=== PATIENT | female | born 1985 | race African-American/Black ===

== ENCOUNTER 2018-07-30 13:26 | Emergency (ER) | payer SELFPAY ==
--- OUTSIDE RECORDS SUMMARY | 2018-07-30 13:30 | XMS REPORT | Clinical Summary ---
:1985 Author Organization [facility] Address [address] [place] [address] Care Team Providers Name Role Phone Sharpless Primary Care Provider Unavailable Allergies Active Allergy Reactions Severity Noted Date Comments Penicillins Hives 07/07/2016 Medications Medication Sig Dispensed Refills Start Date End Date Status traMADol (ULTRAM) 50 Take 1 tablet (50 15 tablet 0 07/07/2016 Active mg tablet mg total) by mouth every 8 (eight) hours as needed for Pain for up to 15 doses. Max Daily Amount: 150 mg Active Problems Not on file Social History Tobacco Use Types Packs/Day Years Used Date Never Smoker Alcohol Use Drinks/Week oz/Week Comments No Sex Assigned at Date Recorded Not on file Job Start Date Occupation Industry Not on file Not on file Not on file Travel History Travel Start Travel End No recent travel history available. Last Filed Vital Signs Not on file Plan of Treatment Not on file Results Not on fileafter 07/29/2017
[2018-07-30 15:59] LABS: Urine Blood 1+ (NEG); Urine Glucose NEGATIVE (NEG); Urine Protein NEGATIVE (NEG)
[2018-07-30 16:11] LABS: Urine RBC <5 /HPF (NONE SEEN)
[2018-07-30 16:12] LABS: Urine Bacteria LOADED /HPF (<20); Urine Culture Reflex Order REFLEXED
--- NOTE | 2018-07-30 16:38 | RAD REPORT ---
EXAM DESCRIPTION: RAD - Ankle Right 3 View - 07/30/2018 3:56 pm CLINICAL HISTORY: Right ankle pain status post injury FINDINGS: No fracture or dislocation is seen. 12 millimeter calcification abuts the anterior aspect of the talus
--- NOTE | 2018-07-30 16:38 | RAD REPORT ---
EXAM DESCRIPTION: RAD - Lumbar Spine 3 Views - 07/30/2018 3:57 pm CLINICAL HISTORY: Back pain FINDINGS: The alignment of the lumbar spine is satisfactory. No fracture or dislocation is seen.
--- NOTE | 2018-07-30 17:30 | ER ---
Nurse's Notes [facility] Name: Ishmael Gomez Age: 33 yrs Sex: Female : 1985 Arrival Date: 07/30/2018 Time: 13:33 Bed 30 Private MD: None, None Diagnosis: Vomiting;Acute upper respiratory infection, unspecified;Sprain of ankle;Contusion of lower back and pelvis;Urinary tract infection, site not specified Presentation: 07/30 13:53 Presenting complaint: Patient states: Reports falling while assisting family member out aj of bathtub this AM. Hit low back on toilet and twisted Right foot. Patient presented to triage with limp to left foot. Ambulated with slow gait. Also report flu like symptoms for 2 days. Reports pain to low back and right foot. Care prior to arrival: None. Mechanism of Injury: Fall from standing position. Trauma event details: Injury occurred in the [facility], Injury occurred: at home. Injury occurred: July 30, 2018 Injury occurred at: 09:00. 13:53 Acuity: JOSEFINA 3 aj 13:53 Method Of Arrival: Ambulatory aj 13:57 Transition of care: patient was not received from another setting of care. Onset of aj symptoms was July 30, 2018. Risk Assessment: Do you want to hurt yourself or someone else? Patient reports no desire to harm self or others. Initial Sepsis Screen: Does the patient meet any 2 criteria? No. Patient's initial sepsis screen is negative. Does the patient have a suspected source of infection? No. Patient's initial sepsis screen is negative. 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 - Social history:: Smoking status: Patient uses tobacco products, smokes one-half pack cigarettes per day. - Ebola Screening: : Patient negative for fever greater than or equal to 101.5 degrees Fahrenheit, and additional compatible Ebola Virus Disease symptoms Patient denies exposure to infectious person Patient denies travel to an Ebola-affected area in the 21 days before illness onset No symptoms or risks identified at this time. Screenin:00 Abuse screen: Denies threats or abuse. Denies injuries from another. Nutritional mg2 screening: No deficits noted. Tuberculosis screening: No symptoms or risk factors identified. Fall Risk Fall in past 12 months (25 points). Gait- Weak (10 pts.). Primary Survey: 13:53 NO uncontrolled hemorrhage observed. Breathing/Chest: Respiratory pattern: regular, aj Respiratory effort: spontaneous, unlabored. Circulation: Skin color: pink, Skin temperature: warm, dry. Disability Alert. 15:15 Exposure/Environment: There is no evidence of uncontrolled external bleeding. mg2 Reassessment Breathing/Chest Respiratory pattern Regular Respiratory effort Spontaneous Unlabored. Assessment: 13:53 General: Appears in no apparent distress. comfortable, obese, Behavior is calm, aj cooperative, appropriate for age. Pain: Complains of pain in low back area, mid back area and right foot. Neuro: Level of Consciousness is awake, alert, obeys commands, Oriented to person, place, time, situation, Appropriate for age. EENT: Reports nasal congestion nasal discharge. Respiratory: Airway is patent Respiratory effort is even, unlabored, Respiratory pattern is regular, symmetrical. Respiratory: Reports cough that is. GI: Reports nausea, vomiting. Derm: Skin is intact, is healthy with good turgor, Skin is pink, warm \T\ dry. normal. Musculoskeletal: Reports pain in low back area, mid back area and right foot. 15:00 Reassessment: Patient appears in no apparent distress at this time. Patient and/or mg2 family updated on plan of care and expected duration. Pain level reassessed. Patient is alert, oriented x 3, equal unlabored respirations, skin warm/dry/pink. 16:41 Reassessment: Patient appears in no apparent distress at this time. Patient and/or mg2 family updated on plan of care and expected duration. Pain level reassessed. Patient is alert, oriented x 3, equal unlabored respirations, skin warm/dry/pink. Vital Signs: 13:53 BP 145 / 91; Pulse 88; Resp 20; Temp 98.0; Pulse Ox 100% on R/A; Weight 163.29 kg; aj Height 5 ft. 6 in. (167.64 cm); 15:00 BP 130 / 90; Pulse 80; Resp 18; Pulse Ox 100% on R/A; Pain 0/10; mg2 16:21 BP 131 / 100; Pulse 89; Resp 18; Pulse Ox 100% on R/A; Pain 3/10; mg2 17:30 BP 123 / 78; Pulse 80; Resp 18; Pulse Ox 100% on R/A; mg2 13:53 Body Mass Index 58.10 (163.29 kg, 167.64 cm) aj [place] Coma Score: 13:53 Eye Response: spontaneous(4). Verbal Response: oriented(5). Motor Response: obeys aj commands(6). Total: 15. Trauma Score (Adult): 13:53 Eye Response: spontaneous(1); Verbal Response: oriented(1); Motor Response: obeys aj commands(2); Systolic BP: > 89 mm Hg(4); Respiratory Rate: 10 to 29 per min(4); Josiah Score: 15; Trauma Score: 12 ED Course: 13:33 Patient arrived in ED. sb2 13:34 None, None is Private Physician. sb2 13:55 Triage completed. aj 13:58 Arm band placed on left wrist. Patient placed in waiting room, Patient notified of wait aj time. Antipyretics given from triage as ordered by an ER provider. Antipyretics given from triage as ordered by an ER provider. X-ray ordered. 14:59 Gilbert Coronado PA is PHCP. jr8 14:59 Corey Dukes MD is Attending Physician. jr8 15:00 Nick Barrett, JEREMIAS is Primary Nurse. mg2 15:15 Patient has correct armband on for positive identification. mg2 15:15 No provider procedures requiring assistance completed. Patient did not have IV access mg2 during this emergency room visit. 15:15 Patient maintains SpO2 saturation greater than 95% on room air. Thermoregulation: warm mg2 blanket given to patient. 15:55 XRAY Ankle RIGHT 3 view In Process Unspecified. EDMS 15:57 XRAY Lumbar Spine (3 Views) In Process Unspecified. EDMS Administered Medications: No medications were administered Intake: 17:50 PO: 0ml; Total: 0ml. mg2 Outcome: 17:30 Discharge ordered by MD. pavon 17:50 Patient's length of stay in the Emergency Department was greater than 2 hours. awaiting mg2 results. Patient's length of stay extended due to 17:51 Discharged to home via wheelchair. mg2 17:51 Condition: stable 17:51 Discharge instructions given to patient, Instructed on discharge instructions, follow up and referral plans. medication usage, Demonstrated understanding of instructions, follow-up care, medications, Prescriptions given X 3. 17:51 Patient left the ED. mg2 Addendum: 08/02/2018 08:01 Addendum: Culture Results: Positive urine culture. No further action required. Bacteria i w sensitive to prescribed antibiotic. Signatures: Dispatcher [employer] EDAriadne Nguyen, RN RN Pratibha Diego RN RN Gilbert Love PA PA jr8 Saba Ceja2 Nick Barrett RN RN mg2
--- NOTE | 2018-07-30 17:30 | EDPHYS ---
Physician Documentation [facility] Name: Ishmael Gomez Age: 33 yrs Sex: Female : 1985 Arrival Date: 07/30/2018 Time: 13:33 Bed 30 Private MD: None, None ED Physician Corey Dukes HPI: 07/30 15:06 This 33 yrs old Black Female presents to ER via Ambulatory with complaints of Fall jr8 Injury - BACK,FOOT, Vomiting. 15:06 Details of fall: The patient fell from seated position. Onset: The symptoms/episode jr8 began/occurred acutely, today. Associated injuries: The patient sustained injury to the low back, right ankle. Severity of symptoms: At their worst the symptoms were mild, in the emergency department the symptoms are unchanged. The patient has not experienced similar symptoms in the past. The patient has not recently seen a physician. Patient stated while getting off of the toilet slipped and twisted right ankle. Caused her to hit low back directly on toilet bowl. Pain to ankle and low back. Had been vomiting for the past week along with flu like symptoms. Stated that co-workers had been having similar symptoms this past week as well. 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 - Social history:: Smoking status: Patient uses tobacco products, smokes one-half pack cigarettes per day. - Ebola Screening: : Patient negative for fever greater than or equal to 101.5 degrees Fahrenheit, and additional compatible Ebola Virus Disease symptoms Patient denies exposure to infectious person Patient denies travel to an Ebola-affected area in the 21 days before illness onset No symptoms or risks identified at this time. ROS: 15:06 Eyes: Negative for injury, pain, redness, and discharge, Neck: Negative for injury, jr8 pain, and swelling, Cardiovascular: Negative for chest pain, palpitations, and edema, Skin: Negative for injury, rash, and discoloration, Neuro: Negative for headache, weakness, numbness, tingling, and seizure. 15:06 Constitutional: Positive for body aches, chills. 15:06 ENT: Positive for rhinorrhea, sinus congestion, sore throat. 15:06 Respiratory: Positive for cough, Negative for dyspnea on exertion, shortness of breath, sputum production, wheezing. 15:06 Abdomen/GI: Positive for nausea and vomiting, Negative for abdominal pain, diarrhea, constipation, abdominal cramps, abdominal distension, hematemesis, black/tarry stool, rectal bleeding. 15:06 Back: Positive for pain at rest, pain with movement, of the lumbar area. 15:06 MS/extremity: Positive for pain, tenderness, of the right ankle. Exam: 15:06 Head/Face: Normocephalic, atraumatic. Eyes: Pupils equal round and reactive to light, jr8 extra-ocular motions intact. Lids and lashes normal. Conjunctiva and sclera are non-icteric and not injected. Cornea within normal limits. Periorbital areas with no swelling, redness, or edema. ENT: Nares patent. No nasal discharge, no septal abnormalities noted. Tympanic membranes are normal and external auditory canals are clear. Oropharynx with no redness, swelling, or masses, exudates, or evidence of obstruction, uvula midline. Mucous membranes moist. Neck: Trachea midline, no thyromegaly or masses palpated, and no cervical lymphadenopathy. Supple, full range of motion without nuchal rigidity, or vertebral point tenderness. No Meningismus. Chest/axilla: Normal chest wall appearance and motion. Nontender with no deformity. No lesions are appreciated. Cardiovascular: Regular rate and rhythm with a normal S1 and S2. No gallops, murmurs, or rubs. Normal PMI, no JVD. No pulse deficits. Respiratory: Lungs have equal breath sounds bilaterally, clear to auscultation and percussion. No rales, rhonchi or wheezes noted. No increased work of breathing, no retractions or nasal flaring. Abdomen/GI: Soft, non-tender, with normal bowel sounds. No distension or tympany. No guarding or rebound. No evidence of tenderness throughout. Skin: Warm, dry with normal turgor. Normal color with no rashes, no lesions, and no evidence of cellulitis. Neuro: Awake and alert, GCS 15, oriented to person, place, time, and situation. Cranial nerves II-XII grossly intact. Motor strength 5/5 in all extremities. Sensory grossly intact. Cerebellar exam normal. Normal gait. 15:06 Back: pain, that is mild, of the lumbar area, ROM is painful, normal spinal alignment noted, CVA tenderness, is absent, muscle spasm, is not present. 15:06 Musculoskeletal/extremity: Extremities: grossly normal except: noted in the right ankle: pain, tenderness, to lateral malleolus , ROM: intact in all extremities, full active range of motion, full passive range of motion, limited active range of motion due to pain, limited passive range of motion due to pain, Circulation is intact in all extremities. Sensation intact. Vital Signs: 13:53 BP 145 / 91; Pulse 88; Resp 20; Temp 98.0; Pulse Ox 100% on R/A; Weight 163.29 kg; aj Height 5 ft. 6 in. (167.64 cm); 15:00 BP 130 / 90; Pulse 80; Resp 18; Pulse Ox 100% on R/A; Pain 0/10; mg2 16:21 BP 131 / 100; Pulse 89; Resp 18; Pulse Ox 100% on R/A; Pain 3/10; mg2 17:30 BP 123 / 78; Pulse 80; Resp 18; Pulse Ox 100% on R/A; mg2 13:53 Body Mass Index 58.10 (163.29 kg, 167.64 cm) aj Josiah Coma Score: 13:53 Eye Response: spontaneous(4). Verbal Response: oriented(5). Motor Response: obeys aj commands(6). Total: 15. Trauma Score (Adult): 13:53 Eye Response: spontaneous(1); Verbal Response: oriented(1); Motor Response: obeys aj commands(2); Systolic BP: > 89 mm Hg(4); Respiratory Rate: 10 to 29 per min(4); Josiah Score: 15; Trauma Score: 12 MDM: 14:59 Patient medically screened. [facility] 17:28 Data reviewed: vital signs, nurses notes, lab test result(s), radiologic studies, plain jr8 films. Data interpreted: Pulse oximetry: on room air is 100 %. Interpretation: normal. Counseling: I had a detailed discussion with the patient and/or guardian regarding: the historical points, exam findings, and any diagnostic results supporting the discharge/admit diagnosis, lab results, radiology results, the need for outpatient follow up, a family practitioner, to return to the emergency department if symptoms worsen or persist or if there are any questions or concerns that arise at home. 07/30 15:24 Order name: Urine Microscopic Only; Complete Time: 16:21 mg2 07/30 15:49 Order name: Urine Dipstick--Ancillary (enter results); Complete Time: 16:21 eb 07/30 15:05 Order name: XRAY Ankle RIGHT 3 view; Complete Time: 17:28 8 07/30 15:05 Order name: XRAY Lumbar Spine (3 Views); Complete Time: 17:28 jr8 07/30 15:49 Order name: Urine --Ancillary (enter results); Complete Time: 16:21 eb 07/30 16:14 Order name: Urine Culture [facility] 07/30 15:05 Order name: Urine Test (obtain specimen); Complete Time: 15:22 jr8 07/30 15:05 Order name: Urine Dipstick-Ancillary (obtain specimen); Complete Time: 15:22 jr8 Administered Medications: No medications were administered Disposition: 07/30/18 17:30 Discharged to Home. Impression: Vomiting, Acute upper respiratory infection, unspecified, Sprain of ankle, Contusion of lower back and pelvis, Urinary tract infection, site not specified. - Condition is Stable. - Discharge Instructions: Ankle Sprain, Nausea and Vomiting, Adult, Upper Respiratory Infection, Adult. - Prescriptions for Zofran 4 mg Oral Tablet - take 1 tablet by ORAL route every 8 hours As needed; 20 tablet. Macrobid 100 mg Oral Capsule - take 1 capsule by ORAL route every 12 hours for 7 days; 14 capsule. Ibuprofen 800 mg Oral Tablet - take 1 tablet by ORAL route every 12 hours As needed take with food; 20 tablet. - Medication Reconciliation Form, Thank You Letter, Antibiotic Education, Prescription Opioid Use form. - Follow up: Private Physician; When: 5 - 6 days; Reason: Recheck today's complaints, Continuance of care, Re-evaluation by your physician. - Problem is new. - Symptoms have improved. Addendum: 08/03/2018 11:03 Co-signature as Attending Physician, Corey Dukes MD I agree with the assessment and c castro plan of care. Signatures: Dispatcher [employer] EDMS Castillo, Ariadne, RN Corey Lamar MD MD cha Roszak, Josh, PA PA jr8 Nick Barrett RN RN mg2 Corrections: (The following items were deleted from the chart) 07/30 17:51 17:30 07/30/2018 17:30 Discharged to Home. Impression: Vomiting; Acute upper mg2 respiratory infection, unspecified; Sprain of ankle; Contusion of lower back and pelvis; Urinary tract infection, site not specified. Condition is Stable. Forms are Medication Reconciliation Form, Thank You Letter, Antibiotic Education, Prescription Opioid Use. Follow up: Private Physician; When: 5 - 6 days; Reason: Recheck today's complaints, Continuance of care, Re-evaluation by your physician. Problem is new. Symptoms have improved. jr8
== END 2018-07-30 17:51 | disposition home or self-care (01) ==
LOC: ER 13:26
DX: S30.0XXA Contusion of lower back and pelvis, initial encounter (principal); S93.401A Sprain of unspecified ligament of right ankle, initial encounter; W18.12XA Fall from or off toilet with subsequent striking against object, initial encounter; J06.9 Acute upper respiratory infection, unspecified; N39.0 Urinary tract infection, site not specified; R11.10 Vomiting, unspecified; F17.210 Nicotine dependence, cigarettes, uncomplicated
CPT/HCPCS: 72100; 81003; 81015; 81025; 87077; 87086; 87088; 87186; 99284

== ENCOUNTER 2018-10-04 13:40 | Emergency (ER) | payer OTHER ==
--- OUTSIDE RECORDS SUMMARY | 2018-10-04 13:42 | XMS REPORT | Clinical Summary ---
:[address] [facility] Address [address] [place] [address] Care Team Providers Name Role Phone Sharpless [...] Not on file Results Not on fileafter 10/03/2017
--- NOTE | 2018-10-04 15:28 | RAD REPORT ---
EXAM DESCRIPTION: CT - Stone Protocol - 10/04/2018 3:15 pm CLINICAL HISTORY: Flank pain. FLANK PAIN COMPARISON: No comparisons TECHNIQUE: Axial images were obtained without oral or IV contrast. Lack of contrast limits solid org an and vascular assessment. The [id number] spans the entirety of the system partially obscuring uppermost abdomen and lung bases. Coronal reformatted images were obtained and reviewed. All CT scans are performed using dose optimization technique as appropriate and may include automated exposure control or mA/KV adjustment according to patient size. FINDINGS: The lower lung purcell are clear. Cholecystectomy clips. Imaged portions of the liver and spleen show no suspicious findings on non-contrast imaging. The panc reas and adrenal glands are normal. No pathologic lymphadenopathy in the abdomen or pelvis. No urinary tract stones or obstructive uropathy. No bowel obstruction, free air, free fluid or abscess. Normal appendix noted. No significant bony abnormality. IUD is present. IMPRESSION: No urinary tract stones or obstructive uropathy.
--- NOTE | 2018-10-04 16:31 | ER ---
Nurse's Notes [facility] Name: Ishmael Gomez Age: 33 yrs Sex: Female : 1985 Arrival Date: 10/04/2018 Time: 13:41 Bed 17 Private MD: None, None Diagnosis: Flank Pain Presentation: 10/04 14:06 Presenting complaint: Patient states: left flank pain that began 4 days ago. Pt denies aa5 any urinary symptoms. Pt denies N/V. Transition of care: patient was not received from another setting of care. Onset of symptoms was October 2018. Risk Assessment: Do you want to hurt yourself or someone else? Patient reports no desire to harm self or others. Initial Sepsis Screen: Does the patient meet any 2 criteria? No. Patient's initial sepsis screen is negative. Does the patient have a suspected source of infection? No. Patient's initial sepsis screen is negative. Care prior to arrival: None. 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 - Social history:: Smoking status: Patient/guardian denies using tobacco. - Ebola Screening: : No symptoms or risks identified at this time. Screenin:03 Abuse screen: Denies threats or abuse. Denies injuries from another. Nutritional ph screening: No deficits noted. Tuberculosis screening: No symptoms or risk factors identified. Fall Risk None identified. Assessment: 14:59 General: Appears in no apparent distress. uncomfortable, obese, well groomed, Behavior ph is calm, cooperative, appropriate for age, Denies fever, chills. Pain: Complains of pain in left iliac crest Pain does not radiate. Pain began approx 4 days ago Is continuous. Neuro: Level of Consciousness is awake, alert, obeys commands, Oriented to person, place, time, situation. Cardiovascular: Capillary refill < 3 seconds in bilateral fingers Patient's skin is warm and dry. Respiratory: Airway is patent Respiratory effort is even, unlabored, Respiratory pattern is regular, symmetrical. GI: Abdomen is non-distended, obese, Patient currently denies abdominal pain, diarrhea, nausea, vomiting. : Reports pain in left flank(s), Denies burning with urination, inability to void, urinary frequency. Derm: Skin is intact, is healthy with good turgor, Skin is pink, warm \T\ dry. Musculoskeletal: Circulation, motion, and sensation intact. Range of motion: intact in all extremities. Vital Signs: 14:07 BP 141 / 101; Pulse 91; Resp 16 S; Temp 98.6; Pulse Ox 97% on R/A; Weight 162.39 kg aa5 (R); Height 5 ft. 6 in. (167.64 cm) (R); Pain 8/10; 14:07 Body Mass Index 57.78 (162.39 kg, 167.64 cm) aa5 ED Course: 13:41 Patient arrived in ED. ag5 13:41 None, None is Private Physician. ag5 14:06 Triage completed. aa5 14:06 Arm band placed on. aa5 14:10 Aria Rodrigez FNP-C is PHCP. kb 14:10 Yancy Omer MD is Attending Physician. kb 14:58 Brittany Peña, RN is Primary Nurse. ph 15:02 Patient has correct armband on for positive identification. Bed in low position. Call ph light in reach. Side rails up X 1. Pulse ox on. NIBP on. Door closed. Noise minimized. Warm blanket given. 15:03 No provider procedures requiring assistance completed. ph 15:10 CT completed. Patient tolerated procedure well. Patient moved to CT via wheelchair. wv Patient moved back from CT. 15:[address] In Process Unspecified. EDMS Administered Medications: No medications were administered Outcome: 16:30 Discharge ordered by . kb 17:00 Patient left the ED. Signatures: Dispatcher [employer] EDMS Aria Rodrigez FNP-C FNP-Ckb Calderon, Audri, RN RN 5 Juani Teixeira RN RN Brittany Peña RN RN Wilson Li [facility]
--- NOTE | 2018-10-04 16:31 | EDPHYS ---
Physician Documentation [facility] Name: Ishmael Gomez Age: 33 yrs Sex: Female : 1985 Arrival Date: 10/04/2018 Time: 13:41 Bed 17 Private MD: None, None ED Physician Yancy Omer HPI: 10/04 15:22 This 33 yrs old Black Female presents to ER via Ambulatory with complaints of PAIN ON kb LEFT SIDE. 15:26 The patient complains of pain in the left flank. The pain does not radiate. Onset: The kb symptoms/episode began/occurred 4 day(s) ago. Modifying factors: The symptoms are alleviated by nothing. the symptoms are aggravated by nothing. Associated signs and symptoms: The patient has no apparent associated signs or symptoms. Severity of pain: At its worst the pain was mild moderate in the emergency department the pain is unchanged. The patient has not experienced similar symptoms in the past. The patient has not recently seen a physician. 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 - Social history:: Smoking status: Patient/guardian denies using tobacco. - Ebola Screening: : No symptoms or risks identified at this time. ROS: 15:17 Constitutional: Negative for fever, chills, and weight loss, Neck: Negative for injury, kb pain, and swelling, Cardiovascular: Negative for chest pain, palpitations, and edema, Respiratory: Negative for shortness of breath, cough, wheezing, and pleuritic chest pain, Abdomen/GI: Negative for abdominal pain, nausea, vomiting, diarrhea, and constipation, : Negative for injury, bleeding, discharge, and swelling, MS/Extremity: Negative for injury and deformity, Skin: Negative for injury, rash, and discoloration, Neuro: Negative for headache, weakness, numbness, tingling, and seizure. 15:17 Back: Positive for flank pain, on the left. Exam: 15:18 Constitutional: This is a well developed, well nourished patient who is awake, alert, kb and in no acute distress. Head/Face: Normocephalic, atraumatic. Chest/axilla: Normal chest wall appearance and motion. Nontender with no deformity. No lesions are appreciated. Cardiovascular: Regular rate and rhythm with a normal S1 and S2. No gallops, murmurs, or rubs. Normal PMI, no JVD. No pulse deficits. Respiratory: Lungs have equal breath sounds bilaterally, clear to auscultation and percussion. No rales, rhonchi or wheezes noted. No increased work of breathing, no retractions or nasal flaring. Abdomen/GI: Soft, non-tender, with normal bowel sounds. No distension or tympany. No guarding or rebound. No evidence of tenderness throughout. Back: No spinal tenderness. No costovertebral tenderness. Full range of motion. Skin: Warm, dry with normal turgor. Normal color with no rashes, no lesions, and no evidence of cellulitis. MS/ Extremity: Pulses equal, no cyanosis. Neurovascular intact. Full, normal range of motion. Neuro: Awake and alert, GCS 15, oriented to person, place, time, and situation. Cranial nerves II-XII grossly intact. Motor strength 5/5 in all extremities. Sensory grossly intact. Cerebellar exam normal. Normal gait. Vital Signs: 14:07 BP 141 / 101; Pulse 91; Resp 16 S; Temp 98.6; Pulse Ox 97% on R/A; Weight 162.39 kg aa5 (R); Height 5 ft. 6 in. (167.64 cm) (R); Pain 8/10; 14:07 Body Mass Index 57.78 (162.39 kg, 167.64 cm) aa5 MDM: 14:35 Patient medically screened. kb 15:11 Data reviewed: vital signs, nurses notes. Data interpreted: Pulse oximetry: on room air kb is 97 %. Interpretation: normal. 15:29 Counseling: I had a detailed discussion with the patient and/or guardian regarding: the kb historical points, exam findings, and any diagnostic results supporting the discharge/admit diagnosis, radiology results, the need for outpatient follow up, a family practitioner, to return to the emergency department if symptoms worsen or persist or if there are any questions or concerns that arise at home. 10/04 15:05 Order name: Urine Dipstick--Ancillary (enter results); Complete Time: 17:03 ss 10/04 15:05 Order name: Urine --Ancillary (enter results); Complete Time: 17:03 ss 10/04 14:10 Order name: Urine Dipstick-Ancillary (obtain specimen); Complete Time: 14:58 kb 10/04 14:57 Order name: Stone Protocol CT; Complete Time: 15:29 kb Administered Medications: No medications were administered Disposition: 17:13 Co-signature as Attending Physician, Yancy Omer MD. ma2 Disposition: 10/04/18 16:30 Discharged to Home. Impression: Flank Pain. - Condition is Stable. - Discharge Instructions: Muscle Pain, Adult, Flank Pain, [id number]. - Prescriptions for Cyclobenzaprine 10 mg Oral Tablet - take 1 tablet by ORAL route every 8 hours As needed; 21 tablet. Diclofenac Sodium 75 mg Oral Tablet, Delayed Release (E.C.) - take 1 tablet by ORAL route 2 times per day As needed; 30 tablet. - Medication Reconciliation Form, Thank You Letter, Antibiotic Education, Prescription Opioid Use form. - Follow up: Emergency Department; When: As needed; Reason: Worsening of condition. Follow up: Private Physician; When: 2 - 3 days; Reason: Recheck today's complaints, Continuance of care, Re-evaluation by your physician. Signatures: Dispatcher [employer] Aria Lanier, ELAINE-C PAINT DIPPER-Melisa Obrien RN RN aa5 Juani Teixeira RN RN ss Alzahri, Mohammad, MD MD ma2 Corrections: (The following items were deleted from the chart) 17:00 16:30 10/04/2018 16:30 Discharged to Home. Impression: Flank Pain. Condition is Stable. ss Forms are Medication Reconciliation Form, Thank You Letter, Antibiotic Education, Prescription Opioid Use. Follow up: Emergency Department; When: As needed; Reason: Worsening of condition. Follow up: Private Physician; When: 2 - 3 days; Reason: Recheck today's complaints, Continuance of care, Re-evaluation by your physician. kb
[2018-10-04 16:50] LABS: Urine Blood 1+ (NEG); Urine Glucose NEGATIVE (NEG); Urine Protein NEGATIVE (NEG); Urine Specific Gravity 1.025 (1.005-1.030)
== END 2018-10-04 17:00 | disposition home or self-care (01) ==
LOC: ER 13:40
DX: R10.9 Unspecified abdominal pain (principal); I10 Essential (primary) hypertension; Z88.1 Allergy status to other antibiotic agents; Z88.0 Allergy status to penicillin
CPT/HCPCS: 74176; 76377; 81003; 81025; 99284

== ENCOUNTER 2020-05-12 13:17 | Emergency (ER) | payer OTHER, SELFPAY ==
--- OUTSIDE RECORDS SUMMARY | 2020-05-12 13:19 | XMS REPORT | Clinical Summary ---
:1985 Author Organization [facility] Address [address] [place] [address] Care Team Providers Name Role Phone Sharpless [...] Assigned at Date Recorded Not on file Last Filed Vital Signs Not on file Plan of Treatment Not on file Results Not on fileafter 05/12/2019
--- NOTE | 2020-05-12 13:56 | ER ---
Nurse's Notes [facility] Name: Ishmael Gomez Age: 35 yrs Sex: Female : 1985 Arrival Date: 05/12/2020 Time: 13:24 Bed 29 Private MD: Diagnosis: Pain in right knee Presentation: 05/12 13:38 Chief complaint: Patient states: R knee pain for a couple months. No known trauma. ll1 Coronavirus screen: Client denies travel out of the [place] in the last 14 days. runny nose, Client presents with at least one sign or symptom that may indicate coronavirus-19. Standard/surgical mask placed on the client. Ebola Screen: Patient denies travel to an Ebola-affected area in the 21 days before illness onset. Initial Sepsis Screen: Does the patient meet any 2 criteria? No. Patient's initial sepsis screen is negative. Does the patient have a suspected source of infection? Yes: Bone or joint infection. Risk Assessment: Do you want to hurt yourself or someone else? Patient reports no desire to harm self or others. Onset of symptoms was March 03, 2020. 13:38 Method Of Arrival: Ambulatory ll1 13:38 Acuity: JOSEFINA 4 ll1 Historical: - Allergies: 13:39 Clindamycin; ll1 13:39 PENICILLINS; ll1 - PMHx: 13:39 Hypertension; ll1 - PSHx: 13:39 Cholecystectomy; Hernia repair; ll1 - Immunization history:: Flu vaccine is not up to date. - Social history:: Smoking status: Patient denies any tobacco usage or history of. Screenin:55 Abuse screen: Denies threats or abuse. Denies injuries from another. Nutritional sv screening: No deficits noted. Tuberculosis screening: No symptoms or risk factors identified. Fall Risk None identified. Assessment: 13:55 General: Appears in no apparent distress. comfortable, obese, well developed, Behavior sv is calm, cooperative, appropriate for age. Pain: Complains of pain in right knee Pain currently is 9 out of 10 on a pain scale. Is intermittent, episodic, Aggravated by increased activity, weight bearing. Neuro: Level of Consciousness is awake, alert, obeys commands, Oriented to person, place, time, situation, Moves all extremities. Full function Gait is steady. Respiratory: Airway is patent Respiratory effort is even, unlabored, Respiratory pattern is regular, symmetrical. Derm: Skin is pink, warm \T\ dry. Vital Signs: 13:38 BP 148 / 78; Pulse 77; Resp 18; Temp 98.2; Pulse Ox 100% ; Weight 162.39 kg; Height 5 ll1 ft. 6 in. (167.64 cm); Pain 9/10; 13:38 Body Mass Index 57.78 (162.39 kg, 167.64 cm) ll1 ED Course: 13:24 Patient arrived in ED. mr 13:36 [facility] snw 13:36 Corey Dukes MD is Attending Physician. snw 13:39 Triage completed. ll1 13:39 Arm band placed on Patient placed in an exam room, on a stretcher. ll1 13:50 Dyan Jama, RN is Primary Nurse. eb 13:55 Patient has correct armband on for positive identification. Bed in low position. Call sv light in reach. 14:12 No provider procedures requiring assistance completed. Patient did not have IV access sv during this emergency room visit. Administered Medications: 13:55 Drug: TORadol 30 mg Route: IM; Site: right deltoid; sv 14:17 Follow up: Response: No adverse reaction sv Outcome: 13:56 Discharge ordered by . snw 14:17 Discharged to home ambulatory. sv 14:17 Condition: stable 14:17 Discharge instructions given to patient, Instructed on discharge instructions, follow up and referral plans. medication usage, Demonstrated understanding of instructions, follow-up care, medications, Prescriptions given X 1. 14:17 Patient left the ED. sv Signatures: Dyan Jama, RN RN Wendy Samuels FNP-C FNP-[facility] Cally RankinCristal Lynsay RN RN ll1
--- NOTE | 2020-05-12 13:56 | EDPHYS ---
Physician Documentation [facility] Name: Ishmael Gomez Age: 35 yrs Sex: Female : 1985 Arrival Date: 05/12/2020 Time: 13:24 Bed 29 Private MD: NIKHIL Physician Corey Dukes HPI: 05/12 14:02 This 35 yrs old Black Female presents to ER via Ambulatory with complaints of Knee Pain.snw 14:02 The patient presents with pain, that is acute. The complaints affect the lateral aspect snw of right knee, medial aspect of right knee and right knee. Context: The problem was sustained at an unknown site, resulted from an unknown cause, the patient can partially bear weight, the patient is able to ambulate, with mild difficulty, Problem is a result from a previous injury: No. Onset: The symptoms/episode began/occurred gradually, 3 month(s) ago, and became persistent. Associated signs and symptoms: Pertinent positives: limping. Treatment prior to arrival includes: no previous treatment. Severity of symptoms: At their worst the symptoms were moderate. It is unknown whether or not the patient has had similar symptoms in the past. It is unknown whether or not the patient has recently seen a physician. encouraged weight loss, pt states she has lost 12# in 2 weeks. Historical: - Allergies: 13:39 Clindamycin; ll1 13:39 PENICILLINS; ll1 - PMHx: 13:39 Hypertension; ll1 - PSHx: 13:39 Cholecystectomy; Hernia repair; ll1 - Immunization history:: Flu vaccine is not up to date. - Social history:: Smoking status: Patient denies any tobacco usage or history of. ROS: 14:01 Constitutional: Negative for fever, chills, and weight loss, Eyes: Negative for injury, snw pain, redness, and discharge, ENT: Negative for injury, pain, and discharge, Neck: Negative for injury, pain, and swelling, Cardiovascular: Negative for chest pain, palpitations, and edema, Respiratory: Negative for shortness of breath, cough, wheezing, and pleuritic chest pain, Abdomen/GI: Negative for abdominal pain, nausea, vomiting, diarrhea, and constipation, Back: Negative for injury and pain, : Negative for injury, bleeding, discharge, and swelling, Skin: Negative for injury, rash, and discoloration, Neuro: Negative for headache, weakness, numbness, tingling, and seizure, Psych: Negative for depression, anxiety, suicide ideation, homicidal ideation, and hallucinations. 14:01 MS/extremity: Positive for decreased range of motion, pain, of the lateral aspect of right knee, medial aspect of right knee and right knee, Negative for injury or acute deformity. Exam: 13:52 Constitutional: This is a well developed, obese patient who is awake, alert, and in no snw acute distress. Head/Face: Normocephalic, atraumatic. Eyes: Pupils equal round and reactive to light, extra-ocular motions intact. Lids and lashes normal. Conjunctiva and sclera are non-icteric and not injected. Cornea within normal limits. Periorbital areas with no swelling, redness, or edema. ENT: Nares patent. No nasal discharge, no septal abnormalities noted. Tympanic membranes are normal and external auditory canals are clear. Oropharynx with no redness, swelling, or masses, exudates, or evidence of obstruction, uvula midline. Mucous membranes moist. Neck: Trachea midline, no thyromegaly or masses palpated, and no cervical lymphadenopathy. Supple, full range of motion without nuchal rigidity, or vertebral point tenderness. No Meningismus. Chest/axilla: Normal chest wall appearance and motion. Nontender with no deformity. No lesions are appreciated. Cardiovascular: Regular rate and rhythm with a normal S1 and S2. No gallops, murmurs, or rubs. Normal PMI, no JVD. No pulse deficits. Respiratory: Lungs have equal breath sounds bilaterally, clear to auscultation and percussion. No rales, rhonchi or wheezes noted. No increased work of breathing, no retractions or nasal flaring. Abdomen/GI: Soft, non-tender, with normal bowel sounds. No distension or tympany. No guarding or rebound. No evidence of tenderness throughout. Back: No spinal tenderness. No costovertebral tenderness. Full range of motion. Skin: Warm, dry with normal turgor. Normal color with no rashes, no lesions, and no evidence of cellulitis. Neuro: Awake and alert, GCS 15, oriented to person, place, time, and situation. Cranial nerves II-XII grossly intact. Motor strength 5/5 in all extremities. Sensory grossly intact. Cerebellar exam normal. Normal gait. Psych: Awake, alert, with orientation to person, place and time. Behavior, mood, and affect are within normal limits. 13:52 Musculoskeletal/extremity: Extremities: grossly normal except: noted in the right knee: decreased ROM, swelling, tenderness, Circulation is intact in all extremities. Sensation intact. Vital Signs: 13:38 BP 148 / 78; Pulse 77; Resp 18; Temp 98.2; Pulse Ox 100% ; Weight 162.39 kg; Height 5 ll1 ft. 6 in. (167.64 cm); Pain 9/10; 13:38 Body Mass Index 57.78 (162.39 kg, 167.64 cm) ll1 MDM: 13:36 Patient medically screened. snw 14:02 Data reviewed: vital signs, nurses notes. Data interpreted: Pulse oximetry: on room air snw is 100 %. Interpretation: normal. Counseling: I had a detailed discussion with the patient and/or guardian regarding: the historical points, exam findings, and any diagnostic results supporting the discharge/admit diagnosis, the need for outpatient follow up, to return to the emergency department if symptoms worsen or persist or if there are any questions or concerns that arise at home. Special discussion: Based on the history and exam findings, there is no indication for further emergent testing or inpatient evaluation. I discussed with the patient/guardian the need to see the orthopedic surgeon for further evaluation of the symptoms. I discussed with the patient/guardian the need to see the primary care provider for further evaluation of the symptoms. 05/12 13:55 Order name: Jesse wrap-joint; Complete Time: 14:08 snw Administered Medications: 13:55 Drug: TORadol 30 mg Route: IM; Site: right deltoid; sv 14:17 Follow up: Response: No adverse reaction sv Disposition: 18:01 Co-signature as Attending Physician, Corey Dukes MD I agree with the assessment and mark plan of care. Disposition: 05/12/20 13:56 Discharged to Home. Impression: Pain in right knee. - Condition is Stable. - Discharge Instructions: Joint Pain, Arthritis, Musculoskeletal Pain, Knee Pain, Cryotherapy, [id number], Heat Therapy. - Prescriptions for Diclofenac Sodium 75 mg Oral Tablet Sustained Release - take 1 tablet by ORAL route 2 times per day; 30 tablet. - Medication Reconciliation Form, Thank You Letter, Antibiotic Education, Prescription Opioid Use form. - Follow up: Emergency Department; When: As needed; Reason: Worsening of condition. Follow up: Private Physician; When: 2 - 3 days; Reason: Recheck today's complaints, Continuance of care, Re-evaluation by your physician. Signatures: Dyan Jama, RN RN Corey Galarza MD MD cha Waters, Shelly, MAGISTRATE-C MAGISTRATE-Csnw Concetta Sen RN RN ll1 Corrections: (The following items were deleted from the chart) 14:17 13:56 05/12/2020 13:56 Discharged to Home. Impression: Pain in right knee. Condition is sv Stable. Forms are Medication Reconciliation Form, Thank You Letter, Antibiotic Education, Prescription Opioid Use. Follow up: Emergency Department; When: As needed; Reason: Worsening of condition. Follow up: Private Physician; When: 2 - 3 days; Reason: Recheck today's complaints, Continuance of care, Re-evaluation by your physician. snw
[2020-05-12] MEDS ORDERED: KETOROLAC 30 MG/ML INJ ONE (14:11)
[2020-05-12 14:26] VITALS: BP 148/78; TEMP 98.2; O2SAT 100
== END 2020-05-12 14:17 | disposition home or self-care (01) ==
LOC: ER 13:17
DX: M25.561 Pain in right knee (principal); I10 Essential (primary) hypertension; Z88.0 Allergy status to penicillin; Z88.3 Allergy status to other anti-infective agents
CPT/HCPCS: 96372; 99283

== ENCOUNTER 2020-07-11 09:55 | Emergency (ER) | payer OTHER ==
[2020-07-11] MEDS ORDERED: ACETAMINOPHEN 325 MG TABLET ONE (10:31)
[2020-07-11] MEDS ORDERED: IBUPROFEN 200 MG TAB PO ONE (10:31)
--- NOTE | 2020-07-11 12:30 | EDPHYS ---
Physician Documentation [facility] Name: Ishmael Gomez Age: 35 yrs Sex: Female : 1985 Arrival Date: 07/11/2020 Time: 09:58 Bed Waiting Private MD: ED Physician Yancy Omer HPI: 07/11 12:21 This 35 yrs old Black Female presents to ER via Ambulatory with complaints of Sore kb Throat, Sinus Pain. 12:21 The patient presents with sore throat. The patient describes throat pain as constant. kb Onset: The symptoms/episode began/occurred 5 day(s) ago. Severity of symptoms: At their worst the symptoms were moderate, in the emergency department the symptoms are unchanged. Modifying factors: The symptoms are alleviated by nothing, the symptoms are aggravated by swallowing, Patient's oral intake status: good. Associated signs and symptoms: Pertinent positives: earache, Sore throat sinus pain and congestion. The patient has not experienced similar symptoms in the past. The patient has not recently seen a physician. Historical: - Allergies: 10:13 Clindamycin; hb 10:13 PENICILLINS; hb - Home Meds: 10:13 None [Active]; hb - PMHx: 10:13 Hypertension; hb - PSHx: 10:13 Cholecystectomy; Hernia repair; hb - Immunization history:: Adult Immunizations up to date. - Social history:: Smoking status: Patient denies any tobacco usage or history of. ROS: 12:14 Constitutional: Negative for fever, chills, and weight loss, Cardiovascular: Negative kb for chest pain, palpitations, and edema, Respiratory: Negative for shortness of breath, cough, wheezing, and pleuritic chest pain, Abdomen/GI: Negative for abdominal pain, nausea, vomiting, diarrhea, and constipation, MS/Extremity: Negative for injury and deformity, Skin: Negative for injury, rash, and discoloration. 12:14 ENT: Positive for ear pain, sinus congestion, sinus pain, sore throat. 12:14 Neuro: Positive for headache. Exam: 12:14 Constitutional: This is a well developed, well nourished patient who is awake, alert, kb and in no acute distress. Head/Face: Normocephalic, atraumatic. Chest/axilla: Normal chest wall appearance and motion. Nontender with no deformity. No lesions are appreciated. Cardiovascular: Regular rate and rhythm with a normal S1 and S2. No gallops, murmurs, or rubs. Normal PMI, no JVD. No pulse deficits. Respiratory: Lungs have equal breath sounds bilaterally, clear to auscultation and percussion. No rales, rhonchi or wheezes noted. No increased work of breathing, no retractions or nasal flaring. Abdomen/GI: Soft, non-tender, with normal bowel sounds. No distension or tympany. No guarding or rebound. No evidence of tenderness throughout. Skin: Warm, dry with normal turgor. Normal color with no rashes, no lesions, and no evidence of cellulitis. MS/ Extremity: Pulses equal, no cyanosis. Neurovascular intact. Full, normal range of motion. Neuro: Awake and alert, GCS 15, oriented to person, place, time, and situation. Cranial nerves II-XII grossly intact. Motor strength 5/5 in all extremities. Sensory grossly intact. Cerebellar exam normal. Normal gait. 12:14 Head/face: Sinus tenderness, that is moderate, is located over the right frontal sinus, left frontal sinus, right ethmoid sinus, left ethmoid sinus, right maxillary sinus and left maxillary sinus. 12:14 ENT: Posterior pharynx: Airway: normal, no evidence of obstruction, Tonsils: bilaterally enlarged, with erythema, Uvula: normal, midline, swelling, that is mild, erythema, that is mild. Vital Signs: 10:11 BP 156 / 99; Pulse 74; Resp 16; Temp 98; Pulse Ox 98% on R/A; Weight 164.2 kg; Height 5 hb ft. 5 in. (165.10 cm); Pain 6/10; 10:11 Body Mass Index 60.24 (164.20 kg, 165.10 cm) hb MDM: 10:17 Patient medically screened. kb 12:28 Data reviewed: vital signs, nurses notes. Data interpreted: Pulse oximetry: on room air kb is 98 %. Interpretation: normal. Counseling: I had a detailed discussion with the patient and/or guardian regarding: the historical points, exam findings, and any diagnostic results supporting the discharge/admit diagnosis, lab results, the need for outpatient follow up, a family practitioner, to return to the emergency department if symptoms worsen or persist or if there are any questions or concerns that arise at home. 12 10:13 Order name: Flu kb 07/11 10:13 Order name: Strep kb 07/11 11:01 Order name: Group A Streptococcus Rapid Sc; Complete Time: 11:13 EDMS Administered Medications: 10:23 Drug: Tylenol 650 mg Route: PO; hb 10:23 Drug: Ibuprofen 600 mg Route: PO; hb Disposition: 18:03 Co-signature as Attending Physician, Yancy Omer MD. ma2 Disposition: 07/11/20 12:29 Discharged to Home. Impression: Acute sinusitis. - Condition is Stable. - Discharge Instructions: Sinusitis, Adult, [id number]. - Prescriptions for Zithromax 500 mg Oral Tablet - take 1 tablet by ORAL route once daily for 5 days; 5 tablet. - Medication Reconciliation Form, Thank You Letter, Antibiotic Education, Prescription Opioid Use, Work release form form. - Follow up: Emergency Department; When: As needed; Reason: Worsening of condition. Follow up: Private Physician; When: 2 - 3 days; Reason: Recheck today's complaints, Continuance of care, Re-evaluation by your physician. Signatures: Dispatcher [employer] EDAria Chris, ELAINE-C ELAINE-Charito Sorenson RN RN Yancy Omer MD MD ma2 Corrections: (The following items were deleted from the chart) 12:22 12:14 ENT: Positive for sinus congestion, sinus pain, sore throat, kb kb 12:22 12:21 Associated signs and symptoms: Pertinent positives: Sore throat sinus pain and kb congestion, kb 12:36 12:29 07/11/2020 12:29 Discharged to Home. Impression: Acute sinusitis. Condition is hb Stable. Forms are Medication Reconciliation Form, Thank You Letter, Antibiotic Education, Prescription Opioid Use. Follow up: Emergency Department; When: As needed; Reason: Worsening of condition. Follow up: Private Physician; When: 2 - 3 days; Reason: Recheck today's complaints, Continuance of care, Re-evaluation by your physician. kb
--- NOTE | 2020-07-11 12:30 | ER ---
Nurse's Notes [facility] Name: Ishmael Gomez Age: 35 yrs Sex: Female : 1985 Arrival Date: 07/11/2020 Time: 09:58 Bed Waiting Private MD: Diagnosis: Acute sinusitis Presentation: 07/11 10:11 Chief complaint: headache, sore throat, and bilateral ear pain x 5 days. Coronavirus hb screen: Client presents with at least one sign or symptom that may indicate coronavirus-19. Standard/surgical mask placed on the client. Provider contacted for isolation considerations. Ebola Screen: No symptoms or risks identified at this time. Initial Sepsis Screen: Does the patient meet any 2 criteria? Yes Does the patient have a suspected source of infection? No. Patient's initial sepsis screen is negative. Risk Assessment: Do you want to hurt yourself or someone else? Patient reports no desire to harm self or others. Onset of symptoms was July 07, 2020. 10:11 Method Of Arrival: Ambulatory hb 10:11 Acuity: JOSEFINA 4 hb Triage Assessment: 10:13 General: Appears in no apparent distress. Behavior is calm, cooperative. Pain: Pain hb currently is 5 out of 10 on a pain scale. EENT: Reports pain since bilateral ears, throat, sinus. Neuro: Level of Consciousness is awake, alert, obeys commands, Oriented to person, place, time, situation. Cardiovascular: Patient's skin is warm and dry. Respiratory: Respiratory effort is even, unlabored, Respiratory pattern is regular, symmetrical. GI: No signs and/or symptoms were reported involving the gastrointestinal system. : No signs and/or symptoms were reported regarding the genitourinary system. Derm: Skin is pink, warm \T\ dry. Musculoskeletal: No signs and/or symptoms reported regarding the musculoskeletal system. Historical: - Allergies: 10:13 Clindamycin; hb 10:13 PENICILLINS; hb - Home Meds: 10:13 None [Active]; hb - PMHx: 10:13 Hypertension; hb - PSHx: 10:13 Cholecystectomy; Hernia repair; hb - Immunization history:: Adult Immunizations up to date. - Social history:: Smoking status: Patient denies any tobacco usage or history of. Screenin:14 Abuse screen: Denies threats or abuse. Denies injuries from another. Nutritional hb screening: No deficits noted. Tuberculosis screening: No symptoms or risk factors identified. Fall Risk None identified. Assessment: 10:14 General: see triage . hb 12:35 Reassessment: Patient appears in no apparent distress at this time. Patient and/or hb family updated on plan of care and expected duration. Pain level reassessed. Patient is alert, oriented x 3, equal unlabored respirations, skin warm/dry/pink. Vital Signs: 10:11 BP 156 / 99; Pulse 74; Resp 16; Temp 98; Pulse Ox 98% on R/A; Weight 164.2 kg; Height 5 hb ft. 5 in. (165.10 cm); Pain 6/10; 10:11 Body Mass Index 60.24 (164.20 kg, 165.10 cm) hb ED Course: 09:58 Patient arrived in ED. ds1 10:05 [facility] Rodrigez [facility]-C [facility]. kb 10:05 Yancy Omer MD is Attending Physician. kb 10:13 Triage completed. hb 10:13 Arm band placed on. hb 10:14 Patient has correct armband on for positive identification. hb 10:23 Flu Sent. hb 10:23 Strep Sent. hb 12:35 No provider procedures requiring assistance completed. Patient did not have IV access hb during this emergency room visit. Administered Medications: 10:23 Drug: Tylenol 650 mg Route: PO; hb 10:23 Drug: Ibuprofen 600 mg Route: PO; hb Outcome: 12:29 Discharge ordered by . kb 12:35 Discharged to home ambulatory. hb 12:35 Condition: stable 12:35 Discharge instructions given to patient, Instructed on discharge instructions, follow up and referral plans. medication usage, Demonstrated understanding of instructions, follow-up care, medications, Prescriptions given X 1. 12:36 Patient left the ED. hb Signatures: Aria Rodrigez FNP-C FNP-Ckb Sanford, Demi ds1 Charito Heredia RN RN hb
--- OUTSIDE RECORDS SUMMARY | 2020-07-11 15:49 | XMS REPORT | Clinical Summary ---
:1985 Author Organization [facility] Address [address] [place] [address] Care Team Providers Name Role Phone Sharpless [...] Not on file Results Not on fileafter 07/11/2019
== END 2020-07-11 12:36 | disposition home or self-care (01) ==
LOC: ER 09:55
DX: J01.90 Acute sinusitis, unspecified (principal); I10 Essential (primary) hypertension; Z88.0 Allergy status to penicillin; Z88.3 Allergy status to other anti-infective agents
CPT/HCPCS: 87070; 87081; 87804; 99283

== ENCOUNTER 2021-02-08 11:26 | Emergency (ER) | payer OTHER ==
--- OUTSIDE RECORDS SUMMARY | 2021-02-08 11:29 | XMS REPORT | Continuity of Care Document ---
:1985 Author Organization [facility] t Address [address] [place] [address] Care Team Providers Name Role Phone Sharpless Primary Care Physician Unavailable Malik NAIK S Attending Clinician Problems This patient has no known problems. Allergies, Adverse Reactions, Alerts Allergy Allergy Status Severity Reaction(s) Onset Inactive Treating Comm ents Source Name Type Date Date Clinician Penicill Drug Active Hives 2015-08 [facility] ins Allergy 2-05 [facility] 00:[facility]: Medical 00 [place] Social History Social Habit Start Date Stop Date Quantity Comments Source Sex Assigned At [facility] Alcohol intake 2016-07-07 2016-07-07 Current [facility] es - 00:00:00 00:00:00 non-drinker of Medical Ce nter alcohol (finding) Smoking Status Start Date Stop Date Source Never smoker [facility] Medications Ordered Filled Start Stop Current Ordering Indication Dosage Frequency Signature Comments Components Source Medication Medication Date Date Medication? Clinician (SIG) Name Name traMADol 2015-08 Yes 50mg Take [address] [facility] [address] (ULTRAM) 50 2-05 tablet (50 Baylee kes - mg tablet 00:00: mg total) Med ical 00 by mouth Center every 8 (eight) hours as needed for Pain for up to 15 doses. Max Daily Amount: 150 mg Procedures This patient has no known procedures. Encounters Start End Encounter Admission Attending Care Care Encounter Source Date/Time Date/Time Type Type Clinicians Facility Department ID 2020-11-17 2020-11-17 Emergency Malik [facility] [id number] 09:59:00 13:07:00 Radha Montalvo [id number] José [id number] [facility] [id number] Results This patient has no known results.
--- NOTE | 2021-02-08 12:30 | ER ---
Nurse's Notes [facility] Name: Ishmael Gomez Age: 35 yrs Sex: Female : 1985 Arrival Date: 02/08/2021 Time: 11:29 Bed 25 Private MD: Diagnosis: Periapical abscess without sinus Presentation: 02/08 11:44 Chief complaint: Patient states: Noticed Left side of face swelling yesterday, vg1 02/07/21. Pt stated took Advil and Tylenol but that did not relieve pain. Stated took Ibuprofen 800 mg and noticed some relief. Denies difficulty swallowing but stated is having difficulty chewing. Coronavirus screen: Client denies travel out of the [place] in the last 14 days. Ebola Screen: Patient negative for fever greater than or equal to 101.5 degrees Fahrenheit, and additional compatible Ebola Virus Disease symptoms. Initial Sepsis Screen: Does the patient meet any 2 criteria? No. Patient's initial sepsis screen is negative. Does the patient have a suspected source of infection? No. Patient's initial sepsis screen is negative. Risk Assessment: Do you want to hurt yourself or someone else? Patient reports no desire to harm self or others. Onset of symptoms was February 07, 2021. 11:44 Method Of Arrival: Ambulatory vg1 11:44 Acuity: JOSEFINA 4 vg1 Triage Assessment: 11:46 General: Appears in no apparent distress. comfortable, Behavior is calm, cooperative. vg1 Pain: Complains of pain in mouth and left side of face Pain currently is 8 out of 10 on a pain scale. EENT: Oral mucosa is moist. pt seems to have a broken tooth at the back of mouth. Neuro: Level of Consciousness is awake, alert, obeys commands, Oriented to person, place, time, situation. Cardiovascular: Patient's skin is warm and dry. Respiratory: Airway is patent Respiratory effort is even, unlabored. GI: No signs and/or symptoms were reported involving the gastrointestinal system. : No signs and/or symptoms were reported regarding the genitourinary system. Derm: Skin is intact, is healthy with good turgor. Musculoskeletal: Circulation, motion, and sensation intact. Swelling present in left cheek. 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 - Social history:: Smoking status: Patient denies any tobacco usage or history of. Screenin:40 Abuse screen: Denies threats or abuse. Nutritional screening: No deficits noted. tw2 Tuberculosis screening: No symptoms or risk factors identified. Fall Risk None identified. Assessment: 11:50 Reassessment: see triage. vg1 12:15 Reassessment: Ecp at bedside discussing care. zb 12:20 Reassessment: Patient appears in no apparent distress at this time. Patient and/or zb family updated on plan of care and expected duration. Pain level reassessed. Patient is alert, oriented x 3, equal unlabored respirations, skin warm/dry/pink. 12:37 Reassessment: d/c instructions given. patient ambulated out. gait even and steady. zb Vital Signs: 11:44 BP 144 / 110; Pulse 90; Resp 20; Temp 98.1; Pulse Ox 99% ; Weight 174.18 kg; Height 5 vg1 ft. 6 in. (167.64 cm); Pain 8/10; 12:11 BP 151 / 112; Pulse 80; Resp 16; Pulse Ox 99% on R/A; zb 11:44 Body Mass Index 61.98 (174.18 kg, 167.64 cm) vg1 ED Course: 11:29 Patient arrived in ED. wm 11:44 Kary Pickens, RN is Primary Nurse. vg1 11:46 Triage completed. vg1 11:46 Arm band placed on. vg1 11:49 Patient has correct armband on for positive identification. Call light in reach. Side vg1 rails up X 1. 11:54 Gilbert Coroando PA is PHCP. jr8 11:54 Rudolph Tang MD is Attending Physician. jr8 12:15 Report received from JEREMIAS shrestha. zb 12:37 No provider procedures requiring assistance completed. Patient did not have IV access zb during this emergency room visit. Administered Medications: No medications were administered Outcome: 12:29 Discharge ordered by . jr8 12:37 Discharged to home ambulatory. vikki 12:37 Condition: stable 12:37 Discharge instructions given to patient, Instructed on discharge instructions, follow up and referral plans. medication usage, Demonstrated understanding of instructions, follow-up care, medications, Prescriptions given X 2. 12:38 Patient left the ED. vikki Signatures: Gilbert Cornoado PA PA jr8 Wise, Tara RN RN tw2 Kary Pickens RN RN vg1 Felisa Padilla RN RN Jessa Davis
--- NOTE | 2021-02-08 12:30 | EDPHYS ---
Physician Documentation [facility] Name: Ishmael Gomez Age: 35 yrs Sex: Female : 1985 Arrival Date: 02/08/2021 Time: 11:29 Bed 25 Private MD: ED Physician Rudolph Tang HPI: 02/08 12:47 This 35 yrs old Black Female presents to ER via Ambulatory with complaints of Facial jr8 Swelling - Left Side. 12:47 Onset: The symptoms/episode began/occurred acutely, yesterday. Associated signs and jr8 symptoms: The patient has no apparent associated signs or symptoms. Modifying factors: The patient symptoms are alleviated by nothing, the patient symptoms are aggravated by nothing. The patient has not experienced similar symptoms in the past. The patient has not recently seen a physician. Patient stated that she chipped a tooth several days ago. Stated that she started to have swelling of left face that worsened when she woke up today. Has first available appointment with dentist on the 13 of this month . 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 - Social history:: Smoking status: Patient denies any tobacco usage or history of. ROS: 12:47 Eyes: Negative for injury, pain, redness, and discharge, Neck: Negative for injury, jr8 pain, and swelling, Cardiovascular: Negative for chest pain, palpitations, and edema, Respiratory: Negative for shortness of breath, cough, wheezing, and pleuritic chest pain, Abdomen/GI: Negative for abdominal pain, nausea, vomiting, diarrhea, and constipation, Back: Negative for injury and pain, MS/Extremity: Negative for injury and deformity, Skin: Negative for injury, rash, and discoloration, Neuro: Negative for headache, weakness, numbness, tingling, and seizure. 12:47 ENT: Positive for dental pain, Gum pain Exam: 12:47 Eyes: Pupils equal round and reactive to light, extra-ocular motions intact. Lids and jr8 lashes normal. Conjunctiva and sclera are non-icteric and not injected. Cornea within normal limits. Periorbital areas with no swelling, redness, or edema. Neck: Trachea midline, no thyromegaly or masses palpated, and no cervical lymphadenopathy. Supple, full range of motion without nuchal rigidity, or vertebral point tenderness. No Meningismus. Cardiovascular: Regular rate and rhythm with a normal S1 and S2. No gallops, murmurs, or rubs. Normal PMI, no JVD. No pulse deficits. Respiratory: Lungs have equal breath sounds bilaterally, clear to auscultation and percussion. No rales, rhonchi or wheezes noted. No increased work of breathing, no retractions or nasal flaring. Abdomen/GI: Soft, non-tender, with normal bowel sounds. No distension or tympany. No guarding or rebound. No evidence of tenderness throughout. Skin: Warm, dry with normal turgor. Normal color with no rashes, no lesions, and no evidence of cellulitis. MS/ Extremity: Pulses equal, no cyanosis. Neurovascular intact. Full, normal range of motion. Neuro: Awake and alert, GCS 15, oriented to person, place, time, and situation. Cranial nerves II-XII grossly intact. Motor strength 5/5 in all extremities. Sensory grossly intact. Cerebellar exam normal. Normal gait. 12:47 Head/face: Noted is swelling, that is mild, of the left cheek. 12:47 ENT: Exam is negative for earache, TM abnormalities, nasal discharge, Mouth: Lips: moist, Oral mucosa: pink and intact, moist, Gums: swollen, on the gums, Tongue: is normal, Posterior pharynx: Airway: patent, Tonsils: are normal in appearance, Uvula: midline, non-edematous, no erythema, swelling, is not appreciated, erythema, is not appreciated, Dental exam: pain, that is moderate, specifically in the upper left first bicuspid (#12) and upper left second bicuspid (#13). Vital Signs: 11:44 BP 144 / 110; Pulse 90; Resp 20; Temp 98.1; Pulse Ox 99% ; Weight 174.18 kg; Height 5 vg1 ft. 6 in. (167.64 cm); Pain 8/10; 12:11 BP 151 / 112; Pulse 80; Resp 16; Pulse Ox 99% on R/A; zb 11:44 Body Mass Index 61.98 (174.18 kg, 167.64 cm) vg1 MDM: 12:08 Patient medically screened. jr8 12:47 Data reviewed: vital signs, nurses notes, and as a result, I will discharge patient. jr8 Data interpreted: Pulse oximetry: on room air is 99 %. Interpretation: normal. Counseling: I had a detailed discussion with the patient and/or guardian regarding: the historical points, exam findings, and any diagnostic results supporting the discharge/admit diagnosis, the need for outpatient follow up, a dentist, to return to the emergency department if symptoms worsen or persist or if there are any questions or concerns that arise at home. 12:49 ED course: Discussed with patient that although her gums are slightly swollen in the jr8 affected region. No moderate to large amount of fluctuance appreciated. Would treat with Abx at this time. If worse to come back for evaluation if in between her dental appointment . Administered Medications: No medications were administered Disposition: 13:11 Co-signature as Attending Physician, Rudolph Tang MD I agree with the assessment and kdr plan of care. Disposition Summary: 02/08/21 12:29 Discharge Ordered Location: Home jr8 Problem: new jr8 Symptoms: have improved jr8 Condition: Stable jr8 Diagnosis - Periapical abscess without sinus jr8 Followup: jr8 - With: Private Physician - When: 2 - 3 days - Reason: Recheck today's complaints, Continuance of care, Re-evaluation by your physician Discharge Instructions: - Dental Abscess jr8 - Dental Pain jr8 - Discharge Summary Sheet tw2 Forms: - Medication Reconciliation Form jr8 - Work release form tw2 - Thank You Letter jr8 - Antibiotic Education jr8 - Prescription Opioid Use jr8 Prescriptions: - cefdinir 300 mg Oral capsule - take 1 capsule by ORAL route every 12 hours for 10 days; 20 capsule; Refills: jr8 0, Product Selection Permitted - Flagyl 500 mg Oral Tablet - take 1 tablet by ORAL route every 8 hours for 10 days; 30 tablet; Refills: 0, jr8 Product Selection Permitted Signatures: Rudolph Tang MD MD kdr Roszak, Josh, PA PA jr8 Kary Pickens RN RN vg1
[2021-02-08 13:02] VITALS: TEMP 98.1; O2SAT 99
[2021-02-08 13:03] VITALS: BP 151/112
== END 2021-02-08 12:38 | disposition home or self-care (01) ==
LOC: ER 11:26
DX: K04.7 Periapical abscess without sinus (principal); I10 Essential (primary) hypertension; Z88.0 Allergy status to penicillin; Z88.3 Allergy status to other anti-infective agents
CPT/HCPCS: 99282

== ENCOUNTER 2021-03-19 07:55 | Emergency (ER) | payer OTHER ==
--- OUTSIDE RECORDS SUMMARY | 2021-03-19 07:59 | XMS REPORT | Continuity of Care Document ---
:1985 Author Organization [facility] t Address [address] [place] [address] Care Team Providers Name Role Phone Sharpless Primary Care Physician Unavailable Malik NAIK S Attending Clinician Problems This patient has no known problems. Allergies, Adverse Reactions, Alerts Allergy Allergy Status Severity Reaction(s) Onset Inactive Treating Comm ents Source Name Type Date Date Clinician Penicill Drug Active Hives 2015-08 [facility] ins Allergy 2-05 [facility]: Medical 00 [place] Social History Social Habit Start Date Stop Date Quantity Comments Source Sex Assigned At [facility] Alcohol intake 2016-07-07 2016-07-07 Current [facility] es - 00:00:00 00:00:00 non-drinker of Medical Ce nter alcohol (finding) Smoking Status Start Date Stop Date Source Never smoker [facility] Medications Ordered Filled Start Stop Current Ordering Indication Dosage Frequency Signature Comments Components Source Medication Medication Date Date Medication? Clinician (SIG) Name Name traMADol 2015-08 Yes 50mg Take [address] [facility] [address] (ULTRAM) 50 2-05 tablet (50 Baylee [...] Clinicians Facility Department ID 2020-11-17 2020-11-17 Emergency [facility] [id number] 09:59:00 13:07:00 Radha Montalvo [id number] José [id number] [place] [id number] Results This patient has no known results.
[2021-03-19 08:39] LABS: Urine Blood Trace-intact (Negative); Urine Glucose Negative (Negative); Urine Protein Negative (Negative); Urine Specific Gravity >=1.030 (1.005-1.030); Urine pH 5.5 (5.0-7.0)
[2021-03-19] MEDS ORDERED: KETOROLAC 30 MG/ML INJ ONE (09:03)
--- NOTE | 2021-03-19 09:05 | RAD REPORT ---
EXAM DESCRIPTION: RAD - Shoulder Right 2 View - 03/19/2021 8:55 am CLINICAL HISTORY: PAIN COMPARISON: Shoulder Right 2 View dated 09/22/2014 FINDINGS: Mild AC joint degenerative changes are present. No acute fracture or dislocation seen. No aggressive bone lesion.
[2021-03-19 09:21] LABS: Urine Specific Gravity/Preg >1.030 (1.005-1.030)
--- NOTE | 2021-03-19 09:39 | ER ---
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 Coronavirus screen: Client denies travel out of the [place] in the last 14 days. At this time, the client does not indicate any symptoms associated with coronavirus-19. Ebola Screen: No symptoms or risks identified at this time. Initial Sepsis Screen: Does the patient meet any 2 criteria? No. Patient's initial sepsis screen is negative. Does the patient have a suspected source of infection? No. Patient's initial sepsis screen is negative. Risk Assessment: Do you want to hurt yourself or someone else? Patient reports no desire to harm self or others. Onset of symptoms was February 27, 2021. Care prior to arrival: None. 08:03 Method Of Arrival: Ambulatory [facility] 08:03 Acuity: JOSEFINA 4 jl7 Triage Assessment: 08:06 General: Appears in no apparent distress. uncomfortable, Behavior is calm, cooperative, jl7 appropriate for age. Pain: Complains of pain in anterior aspect of right shoulder Pain currently is 10 out of 10 on a pain scale. Is continuous. Neuro: Level of Consciousness is awake, alert, obeys commands, Oriented to person, place, time, situation. Cardiovascular: Patient's skin is warm and dry. Respiratory: Airway is patent Respiratory effort is even, unlabored, Respiratory pattern is regular, symmetrical. Derm: Skin is pink, warm \T\ dry. Musculoskeletal: Range of motion: limited in right shoulder. 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 - Social history:: Smoking status: Patient denies any tobacco usage or history of. Screenin:16 Abuse screen: Denies threats or abuse. Denies injuries from another. Nutritional jl7 screening: No deficits noted. Tuberculosis screening: No symptoms or risk factors identified. Fall Risk None identified. Assessment: 09:36 Reassessment: Patient appears in no apparent distress at this time. Patient and/or iw family updated on plan of care and expected duration. Pain level reassessed. Patient is alert, oriented x 3, equal unlabored respirations, skin warm/dry/pink. Vital Signs: 08:03 BP 160 / 105; Pulse 106; Resp 19; Temp 98.1; Pulse Ox 100% ; Weight 175.54 kg; Height 5 jl7 ft. 6 in. (167.64 cm); Pain 10/10; 08:03 Body Mass Index 62.46 (175.54 kg, 167.64 cm) jl7 ED Course: 07:57 Patient arrived in ED. am2 08:06 Triage completed. jl7 08:06 Arm band placed on right wrist. jl7 08:08 Adriana Chou, RN is Primary Nurse. jl7 08:08 Magda Fletcher is Attending Physician. sp3 08:16 Patient has correct armband on for positive identification. jl7 08:16 No provider procedures requiring assistance completed. Patient did not have IV access jl7 during this emergency room visit. 08:54 XRAY Shoulder RIGHT 2 view In Process Unspecified. EDMS Administered Medications: 08:43 Drug: Ketorolac 30 mg Route: IM; Site: left deltoid; iw Outcome: 09:39 Discharge ordered by MD. sp3 09:51 Discharged to home ambulatory. iw 09:51 Condition: good 09:51 Discharge instructions given to patient, Instructed on discharge instructions, follow up and referral plans. medication usage, Demonstrated understanding of instructions, follow-up care, medications, Prescriptions given X 1. 09:51 Patient left the ED. iw Signatures: Dispatcher [employer] EDMS Pratibha Barraza RN RN iw Adriana Chou RN RN jl7 Ariadne Steiner am2 Magda Fletcher sp3 Corrections: (The following items were deleted from the chart) 08:06 08:06 PMHx: Hypertension; jl7 jl7
--- NOTE | 2021-03-19 09:40 | EDPHYS ---
Physician Documentation [facility] Name: Ishmael Gomez Age: 36 yrs Sex: Female : 1985 Arrival Date: 03/19/2021 Time: 07:57 Bed DIS11 Private MD: NIKHIL Physician Magda Fletcher HPI: 03/19 08:26 This 36 yrs old Black Female presents to ER via Ambulatory with complaints of Shoulder sp3 Pain. 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 Patient states that she was lifting a patient and "felt a pop" and has had pain since then. Over the last week or so the pain is gotten worse and she presents today for initial evaluation. She has not reported her injury to her employer and has not sought any other medical attention in any way regarding this injury. Patient states that she has no tingling, pain, paleness, or loss of sensation in the distal extremity on the right side. Patient has not sought any other therapy or taken any other medications at home.. 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 - Social history:: Smoking status: Patient denies any tobacco usage or history of. ROS: 08:29 Constitutional: Negative for fever, chills, and weight loss, Cardiovascular: Negative sp3 for chest pain, palpitations, and edema, Respiratory: Negative for shortness of breath, cough, wheezing, and pleuritic chest pain, Back: Negative for injury and pain, Neuro: Negative for headache, weakness, numbness, tingling, and seizure. 08:29 MS/extremity: Positive for decreased range of motion, pain, Negative for deformity, rash, swelling, tenderness, tingling, warmth. Exam: 08:30 Constitutional: This is a well developed, well nourished patient who is awake, alert, sp3 and in no acute distress. Neck: Trachea midline, no thyromegaly or masses palpated, and no cervical lymphadenopathy. Supple, full range of motion without nuchal rigidity, or vertebral point tenderness. No Meningismus. Chest/axilla: Normal chest wall appearance and motion. Nontender with no deformity. No lesions are appreciated. Cardiovascular: Regular rate and rhythm with a normal S1 and S2. No gallops, murmurs, or rubs. Normal PMI, no JVD. No pulse deficits. Respiratory: Lungs have equal breath sounds bilaterally, clear to auscultation and percussion. No rales, rhonchi or wheezes noted. No increased work of breathing, no retractions or nasal flaring. Abdomen/GI: Soft, non-tender, with normal bowel sounds. No distension or tympany. No guarding or rebound. No evidence of tenderness throughout. Back: No spinal tenderness. No costovertebral tenderness. Full range of motion. 08:30 Musculoskeletal/extremity: Extremities: Patient has pain to abduction and abduction and pain to the anterior superior aspect of the rotator cuff. No pain to bony palpation. No distal pulse deficit, rash, sensory deficit, motor deficit.. Vital Signs: 08:03 BP 160 / 105; Pulse 106; Resp 19; Temp 98.1; Pulse Ox 100% ; Weight 175.54 kg; Height 5 jl7 ft. 6 in. (167.64 cm); Pain 10/10; 08:03 Body Mass Index 62.46 (175.54 kg, 167.64 cm) jl7 MDM: 08:31 ED course: Will obtain x-ray and administer 30 mg of Toradol intramuscularly. Patient sp3 was advised that she needs to get an outpatient MRI and seek orthopedic care for her injury. Also advised her to report to her employer since it is a work-related injury. If x-ray is negative will DC patient in a sling and oral NSAIDs. At this time I am not suspicious for fracture, vascular compromise, compartment syndrome, or any other critical emergency at this time.. 08:33 Patient medically screened. sp3 03/19 08:39 Order name: Urine Dipstick-Ancillary; Complete Time: 09:03 EDMS 03/19 08:52 Order name: Urine --Ancillary (enter results); Complete Time: 09:37 bd 03/19 08:25 Order name: Urine Test (obtain specimen); Complete Time: 08:44 sp3 03/19 08:25 Order name: Urine Dipstick-Ancillary (obtain specimen); Complete Time: 08:44 sp3 03/19 08:25 Order name: XRAY Shoulder RIGHT 2 view; Complete Time: 09:37 sp3 03/19 09:41 Order name: Sling; Complete Time: 09:51 sp3 Administered Medications: 08:43 Drug: Ketorolac 30 mg Route: IM; Site: left deltoid; iw Disposition Summary: 03/19/21 09:39 Discharge Ordered Location: Home sp3 Condition: Stable sp3 Diagnosis - Strain of muscle(s) and tendon(s) of the rotator cuff of right shoulder sp3 Followup: sp3 - With: Private Physician - When: As needed - Reason: Discharge Instructions: - Discharge Summary Sheet sp3 - Shoulder Sprain sp3 - How to Use a Sling sp3 Forms: - Medication Reconciliation Form sp3 - Thank You Letter sp3 - Antibiotic Education sp3 - Prescription Opioid Use sp3 Prescriptions: - Diclofenac Sodium 75 mg Oral Tablet Sustained Release - take 1 tablet by ORAL route 2 times per day; 30 tablet; Refills: 0, Product sp3 Selection Permitted Signatures: Dispatcher [employer] Pratibha Patel, RN Adriana Kimball RN RN jl7 Patel, Setul sp3 Corrections: (The following items were deleted from the chart) 08:06 08:06 PMHx: Hypertension; miranda jl7
[2021-03-19 10:01] VITALS: BP 160/105; TEMP 98.1; O2SAT 100
== END 2021-03-19 09:51 | disposition home or self-care (01) ==
LOC: ER 07:55
DX: S46.011A Strain of muscle(s) and tendon(s) of the rotator cuff of right shoulder, initial encounter (principal); X50.0XXA Overexertion from strenuous movement or load, initial encounter; Y93.89 Activity, other specified; Y92.89 Other specified places as the place of occurrence of the external cause; Y99.8 Other external cause status; Z88.0 Allergy status to penicillin; Z88.3 Allergy status to other anti-infective agents
CPT/HCPCS: 81003; 81025; 96372; 99283